=== PATIENT | male | born 2005 | race Hispanic/Latino ===

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

== ENCOUNTER 2023-01-28 06:32 | Emergency (ER) | payer OTHER ==
[~2023-01-28] VITALS: Ht 185.4 cm; Wt 83.9 kg
[~2023-01-28 06:32] MED LIST: CILOXAN5 ML OS
[2023-01-28 06:37] VITALS: O2SAT 100
[2023-01-28] MEDS ORDERED: CEFTRIAXONE 500 MG VIAL IM ONE (07:00)
[2023-01-28] MEDS ORDERED: AZITHROMYCIN 250 MG TAB PO ONE (07:00)
[2023-01-28 09:19] LABS: CLARITY,URINE CLEAR (CLEAR); COLOR,URINE YELLOW (YELLOW)
[2023-01-28 09:20] LABS: BACTERIA,URINE FEW /HPF; EPITHELIAL CELLS,URINE FEW /LPF; KETONES,URINE NEGATIVE (NEGATIVE); LEUKOCYTE ESTERASE ,URINE NEGATIVE (NEGATIVE); NITRITE,URINE NEGATIVE (NEGATIVE); PROTEIN,URINE DIPSTICK NEGATIVE (NEGATIVE); RBC,URINE 0-5 /HPF (0-5); URINE UROBILINOGEN 0.2 mg/dL (0.2 - 1)
[2023-01-28] MEDS ORDERED: OFLOXACIN400 MG PO (09:32)
== END 2023-01-28 09:42 | disposition home or self-care (01) ==
LOC: ER 06:37
DX: N50.812 Left testicular pain (principal); N45.1 Epididymitis
CPT/HCPCS: 76870; 81001; 87086; 87491; 87591; 93976; 99283; J0696